=== PATIENT | female | born 1965 | race Caucasian/White ===

== ENCOUNTER → 2021-07-29 11:16 | Outpatient (BNVA) | payer OTHER, SELFPAY | PROVIDERS: PCP Internal Medicine; Visit Provider Surgery | DX: R91.1 Solitary pulmonary nodule (principal) | CPT/HCPCS: 99202 ==

== ENCOUNTER 2023-06-04 08:55 | Outpatient (REF) | payer SELFPAY | END 2023-06-04 08:56 | disposition home or self-care (01) | LOC: CF 08:55 | DX: Z13.89 Encounter for screening for other disorder (principal) ==